=== PATIENT | female | born 1935 | race Caucasian/White ===

== ENCOUNTER 2021-04-26 10:45 | Inpatient (IN) ==
[2021-04-26] MEDS ORDERED: Piperacillin/Tazobactam 3.375 GM in Water for inj. (sterile) 20 ML IVP ONE (11:16)
[2021-04-26 11:34] LABS: Basophils # 0.1 K/mcL (0.0-0.2); Basophils % 0.2 %; Eosinophils # 0.2 K/mcL (0.0-0.6); Eosinophils % 0.7 %; Hematocrit 38.6 % (35.3-44.9); Hemoglobin 12.7 g/dL (11.5-15.4); Immature Granulocytes % 0.9 % (0-4); Lymphocytes # 0.9 K/mcL (0.6-4.6); Lymphocytes % 3.9 %; Mean Corpuscular HGB Conc 32.9 g/dL (31.6-35.5); Mean Corpuscular Hemoglobin 30.3 pg (28.0-33.3); Mean Corpuscular Volume 92.1 fL (83.0-100.0); Mean Platelet Volume 10.7 fL (9.4-12.4); Monocytes # 0.8 K/mcL (0.0-1.3); Monocytes % 3.5 %; Neutrophils # 20.1 K/mcL (1.6-8.9); Platelet Count 304 K/mcL (140-400); Red Blood Count 4.19 M/mcL (3.82-4.97); Red Cell Distribution Width 13.5 % (11.5-14.5); Segmented Neutrophils % 90.8 %; White Blood Count 22.1 K/mcL (4.3-11.1)
[2021-04-26 11:58] LABS: BUN/Creatinine Ratio 14 (6-26); Blood Urea Nitrogen 13 mg/dL (8-23); Calcium 9.8 mg/dL (8.6-10.3); Carbon Dioxide 26 mEq/L (23-29); Chloride 101 mEq/L (98-107); Glucose 146 mg/dL (70-105); Osmolality,Calculated 285 (280-300); Potassium 3.4 mEq/L (3.5-5.1); Sodium 136 mEq/L (136-145); eGFR For African Americans > 60 (> 60); eGFR For Non-African Americans 56 (> 60)
[2021-04-26 12:15] LABS: Troponin I 0.05 ng/mL (< 0.04)
[2021-04-26] MEDS ORDERED: Aspirin 325 MG TABLET PO ONE (12:15)
[2021-04-26 12:16] LABS: INR 1.3; Prothrombin Time 14.5 Seconds (9.4-12.1)
[2021-04-26 12:18] LABS: Activated Partial Thrombo Time 30.8 Seconds (26.0-36.0)
[2021-04-26] MEDS ORDERED: Ondansetron 4 MG/2 ML VIAL IVP PRN (13:02)
[2021-04-26] MEDS ORDERED: Acetaminophen 325 MG TABLET PO PRN (13:02)
[2021-04-26] MEDS ORDERED: Naloxone 0.4 MG/ML INJ IVP PRN (13:02)
[2021-04-26 13:33] LABS: Bilirubin,Urine Negative (Negative); Blood,Urine Small (Negative); Clarity,Urine Clear (Clear); Color,Urine Yellow (Yellow); Glucose,Urine (UA) Normal (Normal); Granular Casts,Urine Few per lpf (None Seen); Hyaline Casts,Urine Few per lpf (None Seen); Ketones,Urine Trace mg/dL (Negative); Leukocyte Esterase,Urine Small (Negative); Mucus,Urine Few per lpf (None-Few); Nitrite,Urine Negative (Negative); Protein,Urine 200 mg/dL (Neg-Trace); Renal Epithelial Cells,Urine Few per hpf (None-Few); Specific Gravity,Urine > 1.030 (1.010-1.025); Squamous Epithelial Cell,Urine Few per hpf (None-Few); Transitional Epi Cells,Urine Few per hpf (None-Few); Urobilinogen,Urine Normal (Normal); WBC,Urine 15-30 per hpf (0-3)
[2021-04-26 13:40] LABS: Influenza A PCR Negative (Negative); Influenza B PCR Negative (Negative); Resp. Syncytial Virus PCR Negative (Negative); SARS-CoV-2 by PCR (In House) Negative (Negative)
[2021-04-26] MEDS ORDERED: Vancomycin 1,250 MG/262.5 ML IV.SOLN IVPB ONE (14:18)
[2021-04-26] MEDS: Piperacillin/Tazobactam 3.375 GM in 0.9 % Sodium Chloride Mini Bag 100 ML IVPB SCH (17:27)
[2021-04-27] MEDS: Piperacillin/Tazobactam 3.375 GM in 0.9 % Sodium Chloride Mini Bag 100 ML IVPB SCH ×3 (00:23→16:13)
[2021-04-27] MEDS: *HR* Enoxaparin 40 MG/0.4 ML SYRINGE SQ SCH (06:13)
[2021-04-27 06:50] LABS: Basophils % 0.3 %; Eosinophils # 0.7 K/mcL (0.0-0.6); Eosinophils % 5.9 %; Hemoglobin 11.8 g/dL (11.5-15.4); Immature Granulocytes % 0.4 % (0-4); Lymphocytes % 8.2 %; Mean Corpuscular HGB Conc 32.8 g/dL (31.6-35.5); Mean Corpuscular Hemoglobin 30.5 pg (28.0-33.3); Mean Platelet Volume 10.7 fL (9.4-12.4); Monocytes # 0.7 K/mcL (0.0-1.3); Monocytes % 5.6 %; Neutrophils # 9.4 K/mcL (1.6-8.9); Platelet Count 274 K/mcL (140-400); Red Blood Count 3.87 M/mcL (3.82-4.97); Red Cell Distribution Width 13.7 % (11.5-14.5); Segmented Neutrophils % 79.6 %; White Blood Count 11.8 K/mcL (4.3-11.1)
[2021-04-27 07:01] LABS: BUN/Creatinine Ratio 17 (6-26); Blood Urea Nitrogen 17 mg/dL (8-23); Calcium 9.3 mg/dL (8.6-10.3); Carbon Dioxide 25 mEq/L (23-29); Chloride 106 mEq/L (98-107); Glucose 87 mg/dL (70-105); Magnesium 1.8 mg/dL (1.6-2.6); Osmolality,Calculated 287 (280-300); Potassium 3.9 mEq/L (3.5-5.1); Sodium 138 mEq/L (136-145); eGFR For African Americans > 60 (> 60); eGFR For Non-African Americans 53 (> 60)
[2021-04-27] MEDS: Cyanocobalamin (B-12) 1,000 MCG TABLET PO SCH (08:38)
[2021-04-27] MEDS: Vitamin E 200 UNIT (90MG) CAPSULE PO SCH (08:38)
[2021-04-27] MEDS: Aspirin 81 MG TAB.CHEW PO SCH (08:38)
[2021-04-27] MEDS: Lactobacillus 1 EACH CAP.SPRINK PO SCH (08:45)
[2021-04-27] MEDS: Multivit/Ca/Min/Fe/FA 1 TAB TABLET PO SCH (08:45)
[2021-04-27 09:56] LABS: Enterococcus by PCR Not Detected (Not Detect); mecA Methicillin-Resist Gene DETECTED (Not Detect)
[2021-04-27 09:57] LABS: Acinetobacter baumannii by PCR Not Detected (Not Detect); Candida albicans by PCR Not Detected (Not Detect); Candida glabrata by PCR Not Detected (Not Detect); Candida krusei by PCR Not Detected (Not Detect); Candida parapsilosis by PCR Not Detected (Not Detect); Candida tropicalis by PCR Not Detected (Not Detect); Enterobacter cloacae Cmplx PCR Not Detected (Not Detect); Enterobacteriaceae by PCR Not Detected (Not Detect); Escherichia coli by PCR Not Detected (Not Detect); Klebsiella oxytoca by PCR Not Detected (Not Detect); Klebsiella pneumoniae by PCR Not Detected (Not Detect); Proteus by PCR Not Detected (Not Detect); Pseudomonas aeruginosa by PCR Not Detected (Not Detect); Serratia marcescens by PCR Not Detected (Not Detect); Staphylococcus aureus by PCR Not Detected (Not Detect); Staphylococcus by PCR DETECTED (Not Detect); Streptococcus agalactiae(B)PCR Not Detected (Not Detect); Streptococcus by PCR Not Detected (Not Detect); Streptococcus pneumoniae PCR Not Detected (Not Detect); Streptococcus pyogenes (A) PCR Not Detected (Not Detect)
[2021-04-27] MEDS: Vancomycin 1,250 MG/262.5 ML IV.SOLN IVPB SCH (16:12)
[2021-04-27] MEDS ORDERED: Furosemide 20 MG/2 ML VIAL IVP SCH (19:30)
[2021-04-27] MEDS ORDERED: Saline Nasal Spray 44 ML BOTTLE NS PRN (19:31)
[2021-04-27] MEDS ORDERED: Artificial Tears SOLN 15 ML BOTTLE BOTH EYES PRN (19:31)
[2021-04-27] MEDS ORDERED: Ipratropium/Albuterol Neb 3 ML ONE (19:37)
[2021-04-27] MEDS: Ipratropium/Albuterol Neb 3 ML IH SCH (19:44)
[2021-04-28] MEDS: Piperacillin/Tazobactam 3.375 GM in 0.9 % Sodium Chloride Mini Bag 100 ML IVPB SCH ×3 (00:31→16:53)
[2021-04-28] MEDS: Lactobacillus 1 EACH CAP.SPRINK PO SCH ×3 (00:33→19:31)
[2021-04-28] MEDS: Chlorhexidine Rinse 15 ML MOUTHWASH MM SCH ×3 (00:33→19:31)
[2021-04-28] MEDS: Ipratropium/Albuterol Neb 3 ML IH SCH ×4 (05:06→20:05)
[2021-04-28] MEDS: *HR* Enoxaparin 40 MG/0.4 ML SYRINGE SQ SCH (05:24)
[2021-04-28] MEDS: Furosemide 20 MG/2 ML VIAL IVP SCH (05:24)
[2021-04-28 07:13] LABS: Hematocrit 39.4 % (35.3-44.9); Hemoglobin 12.3 g/dL (11.5-15.4); Mean Corpuscular HGB Conc 31.2 g/dL (31.6-35.5); Mean Corpuscular Volume 92.9 fL (83.0-100.0); Mean Platelet Volume 11.1 fL (9.4-12.4); Platelet Count 308 K/mcL (140-400); Red Blood Count 4.24 M/mcL (3.82-4.97); Red Cell Distribution Width 13.7 % (11.5-14.5); White Blood Count 10.2 K/mcL (4.3-11.1)
[2021-04-28 07:22] LABS: BUN/Creatinine Ratio 15 (6-26); Blood Urea Nitrogen 14 mg/dL (8-23); Calcium 9.3 mg/dL (8.6-10.3); Carbon Dioxide 27 mEq/L (23-29); Chloride 105 mEq/L (98-107); Glucose 98 mg/dL (70-105); Osmolality,Calculated 288 (280-300); Phosphorous 3.3 mg/dL (2.7-4.5); Potassium 3.7 mEq/L (3.5-5.1); Sodium 139 mEq/L (136-145); eGFR For African Americans > 60 (> 60); eGFR For Non-African Americans 56 (> 60)
[2021-04-28] MEDS ORDERED: Isovue-370 500 ML BOTTLE IVP ONE (07:57)
[2021-04-28] MEDS ORDERED: amLODIPine 5 MG TABLET PO SCH (09:00)
[2021-04-28] MEDS: Aspirin 81 MG TAB.CHEW PO SCH (09:35)
[2021-04-28] MEDS: Multivit/Ca/Min/Fe/FA 1 TAB TABLET PO SCH (09:36)
[2021-04-28] MEDS: Cyanocobalamin (B-12) 1,000 MCG TABLET PO SCH (09:36)
[2021-04-28] MEDS: Vitamin E 200 UNIT (90MG) CAPSULE PO SCH (09:36)
[2021-04-28] MEDS: Vancomycin 1,250 MG/262.5 ML IV.SOLN IVPB SCH (16:53)
[2021-04-29] MEDS: Piperacillin/Tazobactam 3.375 GM in 0.9 % Sodium Chloride Mini Bag 100 ML IVPB SCH ×2 (01:38→09:51)
[2021-04-29 03:03] LABS: Hematocrit 36.6 % (35.3-44.9); Hemoglobin 11.5 g/dL (11.5-15.4); Mean Corpuscular HGB Conc 31.4 g/dL (31.6-35.5); Mean Corpuscular Hemoglobin 29.3 pg (28.0-33.3); Mean Corpuscular Volume 93.1 fL (83.0-100.0); Mean Platelet Volume 10.5 fL (9.4-12.4); Platelet Count 333 K/mcL (140-400); Red Blood Count 3.93 M/mcL (3.82-4.97); Red Cell Distribution Width 13.7 % (11.5-14.5); White Blood Count 8.3 K/mcL (4.3-11.1)
[2021-04-29 03:15] LABS: BUN/Creatinine Ratio 13 (6-26); Blood Urea Nitrogen 12 mg/dL (8-23); Calcium 9.1 mg/dL (8.6-10.3); Carbon Dioxide 28 mEq/L (23-29); Chloride 107 mEq/L (98-107); Glucose 102 mg/dL (70-105); Magnesium 1.8 mg/dL (1.6-2.6); Osmolality,Calculated 286 (280-300); Phosphorous 3.9 mg/dL (2.7-4.5); Potassium 3.9 mEq/L (3.5-5.1); Sodium 138 mEq/L (136-145); eGFR For African Americans > 60 (> 60); eGFR For Non-African Americans 58 (> 60)
[2021-04-29] MEDS: Ipratropium/Albuterol Neb 3 ML IH SCH ×2 (03:47→10:26)
[2021-04-29] MEDS: Furosemide 20 MG/2 ML VIAL IVP SCH (06:44)
[2021-04-29] MEDS: *HR* Enoxaparin 40 MG/0.4 ML SYRINGE SQ SCH (06:44)
[2021-04-29] MEDS ORDERED: NIFEdipine XL (24 HR) 60 MG TAB.ER.24 PO SCH (09:00)
[2021-04-29] MEDS: Chlorhexidine Rinse 15 ML MOUTHWASH MM SCH (09:57)
[2021-04-29] MEDS: Vitamin E 200 UNIT (90MG) CAPSULE PO SCH (09:57)
[2021-04-29] MEDS: Cyanocobalamin (B-12) 1,000 MCG TABLET PO SCH (09:57)
[2021-04-29] MEDS: Multivit/Ca/Min/Fe/FA 1 TAB TABLET PO SCH (09:57)
[2021-04-29] MEDS: Lactobacillus 1 EACH CAP.SPRINK PO SCH (09:57)
[2021-04-29] MEDS: Aspirin 81 MG TAB.CHEW PO SCH (09:57)
[2021-04-29 11:40] VITALS: BP 130/65; PULSE 93; TEMP 97.6; O2SAT 97
== END 2021-04-29 14:06 | disposition home health service (06) | DRG 871 ==
LOC: SUATTDRO → 2NENU 10:45 → EMEROOARM 10:45 → SUATTDRO 17:22 → 2NENU 18:14
PROVIDERS: ADMIT Pharmacist; ATTEND Internal Medicine

== ENCOUNTER 2021-05-01 07:45 | Inpatient (IN) ==
[2021-05-01] MEDS ORDERED: Ondansetron 4 MG/2 ML VIAL IVP ONE (07:48)
[2021-05-01] MEDS ORDERED: 0.9 % Sodium Chloride 1,000 ML IVC ONE (07:48)
[2021-05-01 08:46] LABS: Mean Corpuscular Volume 92.8 fL (83.0-100.0)
[2021-05-01 08:48] LABS: Hematocrit 41.2 % (35.3-44.9); Hemoglobin 13.4 g/dL (11.5-15.4); Mean Corpuscular HGB Conc 32.5 g/dL (31.6-35.5); Mean Corpuscular Hemoglobin 30.2 pg (28.0-33.3); Platelet Count 340 K/mcL (140-400); Red Blood Count 4.44 M/mcL (3.82-4.97); Red Cell Distribution Width 14.1 % (11.5-14.5)
[2021-05-01 08:54] LABS: White Blood Count 40.6 K/mcL (4.3-11.1)
[2021-05-01 09:05] LABS: Alanine Aminotransferase 21 Units/L (7-52); Albumin 3.6 g/dL (3.5-5.7); Alkaline Phosphatase 70 Units/L (34-104); Aspartate Amino Transferase 35 Units/L (13-39); BUN/Creatinine Ratio 12 (6-26); Bilirubin,Total 0.7 mg/dL (0.3-1.0); Blood Urea Nitrogen 12 mg/dL (8-23); Calcium 9.9 mg/dL (8.6-10.3); Carbon Dioxide 26 mEq/L (23-29); Chloride 103 mEq/L (98-107); Globulin 3.5 g/dL (2.4-3.5); Glucose 137 mg/dL (70-105); Osmolality,Calculated 290 (280-300); Potassium 4.3 mEq/L (3.5-5.1); Sodium 139 mEq/L (136-145); Total Protein 7.1 g/dL (6.4-8.9); eGFR For African Americans > 60 (> 60); eGFR For Non-African Americans 52 (> 60)
[2021-05-01] MEDS ORDERED: Cefepime HCl 1,000 MG in 0.9 % Sodium Chloride Mini Bag 100 ML IVPB ONE (09:20)
[2021-05-01 09:23] LABS: Lymphocytes # 0.8 K/mcL (0.6-4.6); Platelet Estimate Normal (Normal)
[2021-05-01] MEDS ORDERED: Melatonin 3 MG TABLET PO PRN (11:03)
[2021-05-01] MEDS ORDERED: Ondansetron 4 MG/2 ML VIAL IVP PRN (11:03)
[2021-05-01] MEDS ORDERED: Acetaminophen 325 MG TABLET PO PRN (11:03)
[2021-05-01 12:04] LABS: Bilirubin,Urine Negative (Negative); Blood,Urine Negative (Negative); Clarity,Urine Clear (Clear); Color,Urine Yellow (Yellow); Glucose,Urine (UA) Normal (Normal); Ketones,Urine 10 mg/dL (Negative); Leukocyte Esterase,Urine Negative (Negative); Mucus,Urine Few per lpf (None-Few); Nitrite,Urine Negative (Negative); Protein,Urine 50 mg/dL (Neg-Trace); RBC,Urine 0-3 per hpf (0-3); Specific Gravity,Urine 1.016 (1.010-1.025); Urobilinogen,Urine Normal (Normal); WBC,Urine 0-3 per hpf (0-3)
[2021-05-01] MEDS ORDERED: Perflutren Lipid Microsphere 1.3 ML in 0.9 % Sodium Chloride 8.7 ML IVP PRN (13:16)
[2021-05-01 15:33] LABS: Thyroid Stimulating Hormone 5.409 mcIU/mL (0.340-5.600)
[2021-05-01] MEDS ORDERED: Cefepime HCl 2,000 MG in 0.9 % Sodium Chloride Mini Bag 100 ML IVPB SCH (16:00)
[2021-05-01] MEDS: Cefepime HCl 2,000 MG in Water for inj. (sterile) 20 ML IVP SCH (16:24)
[2021-05-01] MEDS: Vancomycin Oral Soln 125 MG/2.5 ML UDC PO SCH ×3 (16:25→20:12)
[2021-05-01] MEDS: Lactobacillus 1 EACH CAP.SPRINK PO SCH (20:12)
[2021-05-02] MEDS: Cefepime HCl 2,000 MG in Water for inj. (sterile) 20 ML IVP SCH ×3 (00:34→20:37)
[2021-05-02 01:09] LABS: Basophils % 0.2 %; Eosinophils # 0.5 K/mcL (0.0-0.6); Eosinophils % 2.6 %; Hematocrit 34.2 % (35.3-44.9); Immature Granulocytes % 0.7 % (0-4); Lymphocytes # 0.9 K/mcL (0.6-4.6); Mean Corpuscular HGB Conc 31.6 g/dL (31.6-35.5); Mean Corpuscular Hemoglobin 29.8 pg (28.0-33.3); Mean Corpuscular Volume 94.2 fL (83.0-100.0); Mean Platelet Volume 10.7 fL (9.4-12.4); Monocytes # 0.6 K/mcL (0.0-1.3); Platelet Count 319 K/mcL (140-400); Red Blood Count 3.63 M/mcL (3.82-4.97); Red Cell Distribution Width 14.2 % (11.5-14.5); Segmented Neutrophils % 88.5 %
[2021-05-02 01:15] LABS: Hemoglobin 10.8 g/dL (11.5-15.4); Neutrophils # 16.6 K/mcL (1.6-8.9); White Blood Count 18.7 K/mcL (4.3-11.1)
[2021-05-02 02:01] LABS: BUN/Creatinine Ratio 15 (6-26); Blood Urea Nitrogen 15 mg/dL (8-23); Carbon Dioxide 24 mEq/L (23-29); Chloride 107 mEq/L (98-107); Glucose 90 mg/dL (70-105); Magnesium 1.9 mg/dL (1.6-2.6); Osmolality,Calculated 284 (280-300); Potassium 4.3 mEq/L (3.5-5.1); Sodium 137 mEq/L (136-145); eGFR For African Americans > 60 (> 60); eGFR For Non-African Americans 54 (> 60)
[2021-05-02] MEDS: *HR* Enoxaparin 40 MG/0.4 ML SYRINGE SQ SCH (05:15)
[2021-05-02] MEDS: Aspirin 81 MG TAB.CHEW PO SCH (09:16)
[2021-05-02] MEDS: Vancomycin Oral Soln 125 MG/2.5 ML UDC PO SCH ×4 (09:16→20:37)
[2021-05-02] MEDS: Lactobacillus 1 EACH CAP.SPRINK PO SCH ×2 (09:16→20:37)
[2021-05-02 10:04] LABS: Adenovirus F 40/41 PCR Not detected (Not detect); Astrovirus PCR Not detected (Not detect); C.difficile Toxin A/B Gene PCR Not detected (Not detect); Campylobacter by PCR Not detected (Not detect); Cryptosporidium by PCR Not detected (Not detect); Cyclospora cayetanensis PCR Not detected (Not detect); E. coli O157 by PCR Not detected (Not detect); Entamoeba histolytica PCR Not detected (Not detect); Enteroaggregative E.coli(EAEC) Not detected (Not detect); Enteropathogenic E.coli(EPEC) Not detected (Not detect); Enterotoxigenic E.coli (ETEC) Not detected (Not detect); Giardia lamblia PCR Not detected (Not detect); Norovirus GI/GII PCR Not detected (Not detect); Plesiomonas shigelloides PCR Not detected (Not detect); Rotavirus A PCR Not detected (Not detect); Salmonella PCR Not detected (Not detect); Sapovirus PCR Not detected (Not detect); Shig/EnteroinvasiveE coli EIEC Not detected (Not detect); Shigalike tox-prod E coli STEC Not detected (Not detect); Vibrio PCR Not detected (Not detect); Vibrio cholerae PCR Not detected (Not detect); Yersinia enterocolitica PCR Not detected (Not detect)
[2021-05-02] MEDS: NIFEdipine XL (24 HR) 60 MG TAB.ER.24 PO SCH (11:57)
[2021-05-02] MEDS: Furosemide 20 MG/2 ML VIAL IVP SCH (15:25)
[2021-05-03] MEDS: *HR* Enoxaparin 40 MG/0.4 ML SYRINGE SQ SCH (05:12)
[2021-05-03 07:45] LABS: Basophils # 0.1 K/mcL (0.0-0.2); Basophils % 0.8 %; Eosinophils # 0.8 K/mcL (0.0-0.6); Eosinophils % 9.9 %; Hemoglobin 11.9 g/dL (11.5-15.4); Lymphocytes % 12.3 %; Mean Corpuscular HGB Conc 32.2 g/dL (31.6-35.5); Mean Corpuscular Volume 93.2 fL (83.0-100.0); Mean Platelet Volume 10.5 fL (9.4-12.4); Monocytes # 0.8 K/mcL (0.0-1.3); Monocytes % 9.9 %; Neutrophils # 5.1 K/mcL (1.6-8.9); Platelet Count 304 K/mcL (140-400); Red Blood Count 3.97 M/mcL (3.82-4.97); Red Cell Distribution Width 14.2 % (11.5-14.5); Segmented Neutrophils % 66.1 %
[2021-05-03 07:50] LABS: White Blood Count 7.7 K/mcL (4.3-11.1)
[2021-05-03 08:10] LABS: BUN/Creatinine Ratio 15 (6-26); Blood Urea Nitrogen 12 mg/dL (8-23); Calcium 9.3 mg/dL (8.6-10.3); Carbon Dioxide 28 mEq/L (23-29); Chloride 103 mEq/L (98-107); Glucose 96 mg/dL (70-105); Osmolality,Calculated 282 (280-300); Potassium 3.9 mEq/L (3.5-5.1); Sodium 136 mEq/L (136-145); eGFR For African Americans > 60 (> 60); eGFR For Non-African Americans > 60 (> 60)
[2021-05-03] MEDS: Cefepime HCl 2,000 MG in Water for inj. (sterile) 20 ML IVP SCH ×2 (08:37→20:50)
[2021-05-03] MEDS: Lactobacillus 1 EACH CAP.SPRINK PO SCH ×2 (08:38→20:49)
[2021-05-03] MEDS: Aspirin 81 MG TAB.CHEW PO SCH (08:38)
[2021-05-03] MEDS: Furosemide 20 MG/2 ML VIAL IVP SCH (08:38)
[2021-05-03] MEDS: NIFEdipine XL (24 HR) 60 MG TAB.ER.24 PO SCH (08:38)
[2021-05-03] MEDS: Vancomycin Oral Soln 125 MG/2.5 ML UDC PO SCH (08:38)
[2021-05-04] MEDS: *HR* Enoxaparin 40 MG/0.4 ML SYRINGE SQ SCH (05:15)
[2021-05-04] MEDS: NIFEdipine XL (24 HR) 60 MG TAB.ER.24 PO SCH (07:38)
[2021-05-04] MEDS: Lactobacillus 1 EACH CAP.SPRINK PO SCH (07:38)
[2021-05-04] MEDS: Aspirin 81 MG TAB.CHEW PO SCH (07:38)
[2021-05-04] MEDS: Cefepime HCl 2,000 MG in Water for inj. (sterile) 20 ML IVP SCH (07:39)
[2021-05-04] MEDS: Furosemide 20 MG/2 ML VIAL IVP SCH (07:40)
[2021-05-04 10:34] VITALS: TEMP 97.7; O2SAT 98
[2021-05-04 10:36] VITALS: BP 121/68; PULSE 84
== END 2021-05-04 12:36 | disposition home health service (06) | DRG 871 ==
LOC: EMEROOARM 07:45 → 3ANU 14:27 → SUATTDRO 14:27 → 3ANU 15:13
PROVIDERS: ADMIT Internal Medicine; ATTEND Family Medicine